=== PATIENT | female | born 2005 | race Caucasian/White ===

== ENCOUNTER 2024-01-10 20:13 | Emergency (ER) | payer BC ==
[~2024-01-10] VITALS: Ht 175.3 cm; Wt 79.5 kg
[2024-01-10 20:15] VITALS: TEMP 98
[2024-01-10] MEDS ORDERED: predniSONE 20 MG TAB PO ONE (20:45)
[2024-01-10 21:23] LABS: MONOSCREEN NEGATIVE
[2024-01-10] MEDS ORDERED: PREDNISONE20 MG PO (21:36)
[2024-01-10] MEDS ORDERED: ZITHROMAX Z PA250 MG PO (21:36)
[2024-01-10 21:42] VITALS: BP 131/89; PULSE 74
[2024-01-10] MEDS ORDERED: Azithromycin 250 MG TAB PO ONE (21:45)
== END 2024-01-10 21:54 | disposition home or self-care (01) ==
LOC: COL.ER 20:13
PROVIDERS: Emergency Medicine
DX: J03.90 Acute tonsillitis, unspecified (principal); E10.9 Type 1 diabetes mellitus without complications
CPT/HCPCS: J7512